=== PATIENT | male | born 1955 | race Caucasian/White ===

== ENCOUNTER 2016-11-28 10:19 | Emergency (ER) | payer MEDICARE ==
--- NOTE | 2016-11-28 10:41 | ERPHSYRPT ---
- History of Present Illness Time Seen by Provider: 11/28/16 10:22 Source: patient, family () Patient Subjective Stated Complaint: rt wrist injury one week ago Triage Nursing Assessment: hit rt wrist one week ago with hammer. swelling with no bruising to rt outer wrist. pain only with movement. radial pulse present. good sensation Physician History: CC: right wrist pain Hx: 61 y/o male patient of Dr Asif. Hit right wrist with a hammer one week ago. Still has pain and swelling. Using APAP at night. Declines motrin here. No cuts. Severity of Pain-Max: moderate Severity of Pain-Current: mild Extremities Pain Location: wrist: right Allergies/Adverse Reactions: No Known Drug Allergies Allergy (Verified 11/28/16 10:27) Home Medications: Esomeprazole Magnesium [Nexium] 40 mg PO QAM 01/26/12 [History] Hydrochlorothiazide 25 mg PO QAM 01/26/12 [History] Lorazepam [Ativan] 2 mg PO QID 01/26/12 [History] Lovastatin 20 mg PO QAM 01/26/12 [History] Meloxicam [Mobic] 15 mg PO DAILY 01/26/12 [History] Aspirin 1.5 tab PO DAILY 01/27/12 [History] Chlorpromazine HCl 50 mg PO HS 01/27/12 [History] Zolpidem Tartrate 10 mg [Ambien 10 MG] 10 mg PO HS 01/27/12 [History] Hx Tetanus, Diphtheria Vaccination/Date Given: Yes Hx Influenza Vaccination/Date Given: No Hx Pneumococcal Vaccination/Date Given: No Immunizations Up to Date: Yes - Review of Systems Constitutional: No Fever Musculoskeletal: Injury (right wrist) Neurological: No Focal Weakness, No Parasthesia - Past Medical History Pertinent Past Medical History: Yes Neurological History: Stroke ENT History: No Pertinent History Cardiac History: High Cholesterol, Hypertension Respiratory History: No Pertinent History Endocrine Medical History: No Pertinent History Musculoskeletal History: Arthritis GI Medical History: GERD History: No Pertinent History Psycho-Social History: Anxiety Male Reproductive Disorders: No Pertinent History - Past Surgical History Past Surgical History: Yes (T&A, left shoulder, right hand) Neuro Surgical History: No Pertinent History Cardiac: No Pertinent History Respiratory: No Pertinent History Gastrointestinal: No Pertinent History Genitourinary: No Pertinent History Musculoskeletal: Orthopedic Surgery Male Surgical History: No Pertinent History Other Surgical History: T&A and right hand and left shoulder OR - Social History Smoking Status: Never smoker Exposure to second hand smoke: No Drug Use: none Patient Lives Alone: No (here with ) - Nursing Vital Signs Nursing Vital Signs: Initial Vital Signs Temperature 97.7 F Temperature Source Oral Pulse Rate 58 Respiratory Rate 18 Blood Pressure [Left Arm] 146/41 Pain Intensity 0 - Physical Exam General Appearance: alert Cardiovascular/Respiratory Exam: regular rate/rhythm Neuro/Tendon Exam: normal sensation, normal motor functions Mental Status Exam: alert, oriented x 3, cooperative Skin Exam: warm, dry, No rash SpO2: 98 Comments: tender right wrist ulnar styloid area. Some swelling. Ulnar deviation. Pain with ulnar deviation and supination. Skin intact. No redness. - Course Nursing assessment & vital signs reviewed: Yes Ordered Tests: Active Orders 24 hr Category Date Time Status Splint STAT Care 11/28/16 10:56 Active WRIST (MIN 3 VIEWS) Stat Exams 11/28/16 10:36 Completed - Progress Progress Note: 11/28/16 11:08 He likely has chronic sprain. No new FB injury. The cortical arthritic cyst may have some cortical disruption. Should need splint. LEather splint on. Instr given. Counseled pt/family regarding: diagnosis, need for follow-up, rad results - Departure Time of Disposition: 11:08 Departure Disposition: Home Clinical Impression: Contusion of right wrist Qualifiers: Encounter type: initial encounter Qualified Code(s): S60.211A - Contusion of right wrist, initial encounter Condition: Stable Critical Care Time: No Referrals: GILBERTO ASIF [Primary Care Provider] - Instructions: Wrist Sprain Additional Instructions: Wear splint until follow up with Dr Asif in 1-2 weeks. Ice packs off and on. Rx [place]. Prescriptions: Hydrocodone Bit/Acetaminophen [[place] 5-325 Tablet] 1 each PO Q6H PRN PRN #15 tablet PRN Reason: Pain
--- NOTE | 2016-11-28 11:06 | XRAY ---
Indication: Pain following injury one week ago. Comparison: None 4 projections of the right wrist demonstrates mild posterior ulnar soft tissue swelling and tiny ulnar styloid subcortical cystic lesion with cortical disruption either posttraumatic versus infectious. No abnormal subcutaneous air. Tiny 3 mm linear foreign body posterior to the triquetrum and widening of the scapholunate articulation concerning for underlying ligamentous tear. Faint vascular calcifications. Impression: 1. Ulnar styloid cystic lesion with cortical disruption and adjacent soft tissue swelling either post traumatic versus infectious. 2. Tiny soft tissue foreign body. 3. Scapholunate widening concerning for underlying ligamentous tear.
[2016-11-28 11:22] VITALS: BP 148/65; PULSE 78; O2SAT 97
== END 2016-11-28 11:22 | disposition home or self-care (01) ==
LOC: ED 10:19
DX: S60.211A Contusion of right wrist, initial encounter (principal); W22.8XXA Striking against or struck by other objects, initial encounter; E78.00 Pure hypercholesterolemia, unspecified; I10 Essential (primary) hypertension; Z79.899 Other long term (current) drug therapy
CPT/HCPCS: 73110; 99282; 99283; L3908